=== PATIENT | male | born 1985 | race American Indian/Alaskan Native ===

== ENCOUNTER 2024-05-15 21:52 | Emergency (ER) | payer OTHER ==
[~2024-05-15] VITALS: Ht 170.2 cm; Wt 84.1 kg
[~2024-05-15 21:52] MED LIST: SULF1TAB42 PO
[2024-05-15 22:36] VITALS: TEMP 98.3
[2024-05-15 22:51] VITALS: BP 137/83; PULSE 84; RESP 14; O2SAT 99
== END 2024-05-15 23:56 ==
LOC: EMS 21:55
DX: L02.31 Cutaneous abscess of buttock (principal); F12.90 Cannabis use, unspecified, uncomplicated
CPT/HCPCS: 99283; Z7502